=== PATIENT | male | born 1980 | race Caucasian/White ===

== ENCOUNTER 2023-06-25 08:37 | Outpatient (AMB) | payer OTHER, SELFPAY ==
--- NOTE | 2023-06-25 08:45 | MHC.OFFWIV ---
Intake Vital Signs 06/25/23 09:01 Height 5 ft 9 in Weight 262 lb BMI 38.7 BP 110/72 Blood Pressure Location Lt brachial Position Sitting Pulse 70 Pulse Source Pulse Oximeter Temp 97.7 F Temp Source Temporal Artery Scan Pulse Oximetry (%) 97 Oxygen Delivery Method Room Air Intake Visit Reasons: [employer] right hand injury wrist pain Intake Note: pt is here today for rt hand injury wrist pain started 1 week ago Patient Tobacco Use Status: Never used Tobacco Allergies No Known Allergies Allergy (Verified 06/25/23 09:04) Do you need a note to return to daycare/school/sports/work: No HPI [employer] right hand injury wrist pain HPI Details Patient is a 43-year-old gentleman came in today to be evaluated for right hand and elbow pain Patient says that he has been working in his yd with heavy equipment all this week 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 with food He can wear tennis elbow splint right side, [id number] as well [facility] Social History Patient Tobacco Use Status: Never used Tobacco Review of Systems Const All systems reviewed & are unremarkable except as noted in HPI and below Physical Exam Vital Signs: Last Vital Signs Temp 97.7 F 06/25/23 09:01 Pulse 70 06/25/23 09:01 BP 110/72 06/25/23 09:01 Pulse Ox 97 06/25/23 09:01 Oxygen Delivery Method Room Air 06/25/23 09:01 BMI result Body Mass Index 38.7 Const General: no acute distress Orientation/consciousness: patient oriented x3 Eyes General: appearance normal, both eyes and all related structures Resp Effort & Inspection: normal respiratory effort and able to speak in complete sentences Neuro General: patient oriented x3 Extrem Elbow/forearm/wrist images: 1. Pain with pressure, elbow has full range of motion Hand/finger images: 1. Site of pain with pressure 2. Discomfort with pressure, but thumb has full range of motion, sensory motor intact Psych Mental Status: mental status grossly normal Assessment & Plan Assessment & Plan (1) Wrist pain: Code(s): M25.539 - Pain in unspecified wrist Qualifiers: Laterality: right Qualified Code(s): M25.531 - Pain in right wrist (2) Pain of right thumb: Code(s): M79.644 - Pain in right finger(s) (3) Right tennis elbow: Code(s): M77.11 - Lateral epicondylitis, right elbow Plan Patient is a 43-year-old gentleman came in today to be evaluated for right hand and elbow pain Patient says that he has been working in his yd with heavy equipment all this week 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 with food He can wear tennis elbow splint right side, celu-zdu-juksoqv as well Orders: Orders XR hand wrist RT Today M25.539 - Pain in unspecified wrist Coding Level of Care Code New Pt Level 3 (22008) Diagnoses Right wrist pain M25.531 Laterality: right Pain of right thumb M79.644 Right tennis elbow M77.11
[2023-06-25 09:01] VITALS: BP 110/72; PULSE 70; TEMP 36.5; O2SAT 97; BMI 38.7
--- NOTE | 2023-06-25 09:34 | AM.OFFWIN_ITS ---
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 Patient Tobacco Use Status: Never used Tobacco Allergies No Known Allergies Allergy (Verified 06/25/23 09:04) PFSH Social History Patient Tobacco Use Status: Never used Tobacco Physical Exam Vital Signs: Last Vital Signs Temp 97.7 F 06/25/23 09:01 Pulse 70 06/25/23 09:01 BP 110/72 06/25/23 09:01 Pulse Ox 97 06/25/23 09:01 Oxygen Delivery Method Room Air 06/25/23 09:01 BMI result Body Mass Index 38.7 Assessment & Plan Assessment & Plan (1) Wrist pain: Code(s): M25.539 - Pain in unspecified wrist Qualifiers: Laterality: right Qualified Code(s): M25.531 - Pain in right wrist (2) Pain of right thumb: Code(s): M79.644 - Pain in right finger(s) (3) Right tennis elbow: Code(s): M77.11 - Lateral epicondylitis, right elbow Orders: Orders XR hand wrist RT Today M25.539 - Pain in unspecified wrist Coding Diagnoses Right wrist pain M25.531 Laterality: right Pain of right thumb M79.644 Right tennis elbow M77.11
== END 2023-06-25 11:11 | disposition home or self-care (01) ==
PROVIDERS: Visit Provider Internal Medicine
DX: M25.531 Pain in right wrist (principal); M79.644 Pain in right finger(s); M77.11 Lateral epicondylitis, right elbow
CPT/HCPCS: 99203

== ENCOUNTER 2023-06-25 09:29 | Outpatient (REF) | payer OTHER, SELFPAY ==
--- NOTE | ~2023-06-25 | XR_ITS ---
EXAMINATION: XR HAND/WRIST, RIGHT CLINICAL INFORMATION: Pain in unspecified wrist. COMPARISON: None available. TECHNIQUE: PA, lateral, and oblique views of the right hand and wrist. FINDINGS: Bone mineralization is normal. Mild degenerative changes in the first carpometacarpal joint with joint space narrowing and hypertrophic change. No displaced fracture is appreciated. XR/XR hand wrist RT IMPRESSION: 1. Mild degenerative changes in the first carpometacarpal joint. 2. Sclerotic focus overlying the base of the third metacarpal, possibly representing a bone island. 3. No displaced fracture. Recommend follow-up imaging in 10-14 days if fracture is suspected.
== END 2023-06-25 09:30 | disposition home or self-care (01) ==
LOC: HO.HMGCX 09:29
PROVIDERS: PCP Internal Medicine; Visit Provider Internal Medicine
DX: M25.531 Pain in right wrist (principal)
CPT/HCPCS: 73110; 73130

== ENCOUNTER 2023-12-01 08:03 | Outpatient (AMB) | payer OTHER, SELFPAY ==
[2023-12-01 08:11] VITALS: BP 110/78; PULSE 73; TEMP 36.7; O2SAT 97; BMI 38.7
--- NOTE | 2023-12-01 08:11 | MHC.OFFWIV ---
Intake Vital Signs 12/01/23 08:11 Height 5 ft 9 in Weight 262 lb BMI 38.7 BP 110/78 Blood Pressure Location Lt brachial Position Sitting Pulse 73 Pulse Source Pulse Oximeter Temp 98.1 F Temp Source Oral Pulse Oximetry (%) 97 Oxygen Delivery Method Room Air Intake Visit Reasons: EP-possible bronchitis Intake Note: Patient here for cough, congestion which has been going on for a couple of weeks. Patient Tobacco Use Status: Never used Tobacco Allergies No Known Allergies Allergy (Verified 12/01/23 08:14) Do you need a note to return to daycare/school/sports/work: No HPI EP-possible bronchitis HPI Details This note is constructed using voice recognition software. While every effort has been made to ensure accuracy, director of advertising sales errors may have been included. The patient is a 43 year old male who presents to the clinic today with cough for the past 3 weeks after URI. He reports initially having a low-grade fever, which had gotten no higher than 99, with some sinus congestion which resolve. He also has a history of asthma, as well as seasonal allergies, and he treats those daily. Not been using his albuterol inhaler, however does report that he has had some wheezing. He reports that he is overall feeling better, it has not had any worsening since early in the disease process, he is just getting tired of the coughing. He denies shortness of breath. [facility] Social History Patient Tobacco Use Status: Never used Tobacco Review of Systems Const All systems reviewed & are unremarkable except as noted in HPI and below Physical Exam Vital Signs: Last Vital Signs Temp 98.1 F 12/01/23 08:11 Pulse 73 12/01/23 08:11 BP 110/78 12/01/23 08:11 Pulse Ox 97 12/01/23 08:11 Oxygen Delivery Method Room Air 12/01/23 08:11 BMI result Body Mass Index 38.7 Const General: cooperative, healthy appearing, comfortable, no acute distress and alert Orientation/consciousness: patient oriented x3 Limitations: no limitations HEENT Head: Yes normal to inspection and Yes normocephalic Ears: hearing grossly normal bilaterally General nose exam: Normal external nose present Face and sinus: Yes normal facial exam and Yes sinuses nontender Mouth: Normal oral and palatal mucosa present and tongue normal Teeth and gingiva: dentition normal Throat: Yes posterior oropharynx normal Eyes General: appearance normal, both eyes and all related structures Neck Neck: Yes normal visual inspection, Yes full ROM and Yes no lymphadenopathy Resp Effort & Inspection: normal respiratory effort and able to speak in complete sentences Auscultation: clear to auscultation bilaterally (Wheeze that clears with cough) Cardio Jugular venous distension: no JVD Palpation: normal PMI Rate: regular rate Heart sounds: S1 normal heart sound present, S2 normal heart sound present, no click, no gallops, no murmurs and no rubs Skin General skin exam: no rashes or lesions noted, elasticity normal and turgor normal Neuro General: patient oriented x3 Psych Appearance: grossly normal Mental Status: mental status grossly normal Speech and movement: Normal speech and movement present Affect: normal affect Assessment & Plan Assessment & Plan (1) Asthma exacerbation: Code(s): J45.901 - Unspecified asthma with (acute) exacerbation Qualifiers: Asthma severity: mild Asthma persistence: intermittent Qualified Code(s): J45.21 - Mild intermittent asthma with (acute) exacerbation Plan: Advised use of albuterol rescue inhaler for symptomatic management. Additionally we will prescribe prednisone with taper. Advised follow up as needed with worsening or failure to resolve. Plan See above for full details and plan. Medications: New prednisone 5 tablets daily for 2 days, then 4 tablets daily for 2 days, then 3 tablets daily for 2 days, then 2 tablets daily for 2 days, then 1 tablet daily for 2 days. 10 mg PO DIRECTED 30 tabs 0RF Coding Level of Care Code Est Pt Level 3 (48020) Diagnoses Mild intermittent asthma with exacerbation J45.21 Asthma severity: mild Asthma persistence: intermittent
== END 2023-12-01 08:34 | disposition home or self-care (01) ==
PROVIDERS: PCP Internal Medicine; Visit Provider Registered Nurse
DX: J45.21 Mild intermittent asthma with (acute) exacerbation (principal)

== ENCOUNTER → 2023-12-01 08:03 | Outpatient (BNVA) | payer OTHER, SELFPAY | PROVIDERS: PCP Internal Medicine; Visit Provider Registered Nurse ==

== ENCOUNTER 2024-02-11 08:22 | Outpatient (AMB) | payer OTHER, SELFPAY ==
--- NOTE | 2024-02-11 09:31 | MHC.OFFWIV ---
Intake Vital Signs 02/11/24 09:32 Height 5 ft 9 in Weight 266 lb BMI 39.3 BP 120/82 Blood Pressure Location Lt brachial Position Sitting Pulse 72 Pulse Source Pulse Oximeter Pulse Oximetry (%) 98 Oxygen Delivery Method Room Air Intake Visit Reasons: EP LT middle finger injury Intake Note: Patient here for middle finger of left hand wound due to dog bite. He states he was playing with his dog yesterday. Patient Tobacco Use Status: Never used Tobacco Allergies No Known Allergies Allergy (Verified 02/11/24 09:33) Do you need a note to return to daycare/school/sports/work: No HPI EP LT middle finger injury HPI Details This is a 43-year-old male patient who presents to the walk-in clinic today with an injury of his left middle finger due to a dog bite. He states that he was playing with his [place] yesterday and the dog bit him playfully on the finger. He applied pressure to stop the bleeding and later cleansed with soap/water and iodine at home. He has since had an increase in pain/swelling and redness at site of bite. Dog is fully up to date on all vaccines including rabies. [facility] Social History Patient Tobacco Use Status: Never used Tobacco Review of Systems Const All systems reviewed & are unremarkable except as noted in HPI and below Physical Exam Vital Signs: Last Vital Signs Pulse 72 02/11/24 09:32 BP 120/82 02/11/24 09:32 Pulse Ox 98 02/11/24 09:32 Oxygen Delivery Method Room Air 02/11/24 09:32 BMI result Body Mass Index 39.3 Const General: cooperative, healthy appearing, comfortable and no acute distress Resp Effort & Inspection: normal respiratory effort Extrem Other: Left middle finger: closed bite wound on both dorsal and palmar aspect of left middle finger, at MCP. Surrounding area is warm and erythematous, and tender to palpation. Patient unable to bend MCP more than approx 20 degrees. Normal cap refill. Other digits wnl. Psych Appearance: grossly normal Mental Status: mental status grossly normal Speech and movement: Normal speech and movement present Immunizations Boostrix Tdap 2.5 Lf unit-8 mcg-5 Lf/0.5 mL intramuscular syringe Performing Provider: RAQUEL Martinez Performing Location: [facility] Administered by: CASSY Callejas on 02/11/24 09:49 Dose Route Admin Location Dispensed Lot Number Expiration Date [facility] Neurology Teacher 0.5 mL IM Right Deltoid 0.5 mL [id number] 03/08/26 [id number] [employer] VIS Given Date VIS Provided VIS Publication Date 02/11/24 Single Vaccine 20 Eligibility Eligibility Date Funding Source Not [facility] Eligible 02/11/24 Private Assessment & Plan Assessment & Plan (1) Dog bite of finger: Code(s): S61.259A - Open bite of unspecified finger without damage to nail, initial encounter; W54.0XXA - Bitten by dog, initial encounter Qualifiers: Encounter type: initial encounter Qualified Code(s): S61.259A - Open bite of unspecified finger without damage to nail, initial encounter; W54.0XXA - Bitten by dog, initial encounter Plan: Dog is owned by patient and is up to date on all vaccines. Patient has not had TDAP in >10 years, so that was administered today. Given location of bite near tendons/bone, and erythema/swelling of site, will start on Augmentin 7 days. Also started on NSAID. We reviewed indications, use, possible side effects of these medications. Advised patient to return to the clinic or see PCP if area of injury is not improved with treatment, or if symptoms worsen in the meantime. Advised patient to keep area clean and dry, and apply ice as needed. He may also take Tylenol p.r.n.. All questions were answered and patient verbalizes understanding and agrees to plan. Orders: Orders TDaP Immunization Today S61.259A - Open bite of unspecified finger without damage to nail, initial encounter, W54.0XXA - Bitten by dog, initial encounter, Z23 - Encounter for immunization Medications: New meloxicam 15 mg PO DAILY 7 days 7 tabs 0RF M79.89 - Other specified soft tissue disorders, S61.259A - Open bite of unspecified finger without damage to nail, initial encounter, W54.0XXA - Bitten by dog, initial encounter amoxicillin-pot clavulanate 875-125 mg Take one tablet every 12 hours by mouth for 7 days. 1 tab PO BID 7 days 14 tabs 0RF S61.259A - Open bite of unspecified finger without damage to nail, initial encounter, W54.0XXA - Bitten by dog, initial encounter Coding Level of Care Code Est Pt Level 4 (93678) Diagnoses Dog bite of finger, initial encounter S61.259A; W54.0XXA Encounter type: initial encounter
[2024-02-11 09:32] VITALS: BP 120/82; PULSE 72; O2SAT 98; BMI 39.3
== END 2024-02-11 10:03 | disposition home or self-care (01) ==
PROVIDERS: PCP Internal Medicine; Visit Provider Nurse Practitioner Family
DX: Z23 Encounter for immunization (principal); S61.259A Open bite of unspecified finger without damage to nail, initial encounter; W54.0XXA Bitten by dog, initial encounter

== ENCOUNTER → 2024-02-11 08:22 | Outpatient (BNVA) | payer OTHER, SELFPAY | PROVIDERS: PCP Internal Medicine; Visit Provider Nurse Practitioner Family | DX: S61.253A Open bite of left middle finger without damage to nail, initial encounter (principal); Z23 Encounter for immunization; W54.0XXA Bitten by dog, initial encounter; Y93.9 Activity, unspecified; Y92.9 Unspecified place or not applicable; Y99.9 Unspecified external cause status | CPT/HCPCS: 90471; 90715 ==